=== PATIENT | male | born 1990 | race Caucasian/White ===

== ENCOUNTER → 2024-06-05 | Outpatient (CLI) | payer OTHER | LOC: M PLAIMG 15:10 | PROVIDERS: ATTEND Chiropractor | DX: S33.5XXD Sprain of ligaments of lumbar spine, subsequent encounter (principal); M99.03 Segmental and somatic dysfunction of lumbar region; Y93.9 Activity, unspecified; Y92.9 Unspecified place or not applicable; M51.87 Other intervertebral disc disorders, lumbosacral region ==